=== PATIENT | female | born 1995 | race Caucasian/White ===

== ENCOUNTER → 2021-11-26 | Outpatient (CLI) | payer OTHER ==
[~2021-11-26] MED LIST: CEPH500 PO; Flagyl500 MG PO; MICO100S VAG; Macrobid 100 M100 MG PO; Naprosyn500 MG PO; PROC10 PO
[2021-11-27 10:29] LABS: Candida species (DNA Probe) Negative (NEGATIVE); G. vaginalis (DNA Probe) Positive (NEGATIVE); T. vaginalis (DNA Probe) Negative (NEGATIVE)
== END | disposition home or self-care (01) ==
LOC: LAB SHORT 17:50
PROVIDERS: Family Medicine
DX: R21 Rash and other nonspecific skin eruption (principal)
CPT/HCPCS: 87480; 87510; 87660

== ENCOUNTER → 2021-12-15 | Outpatient (CLI) | payer OTHER | LOC: LAB SHORT 11:15 → LAB 11:15 | DX: R31.9 Hematuria, unspecified (principal); R30.9 Painful micturition, unspecified | CPT/HCPCS: 87077; 87086; 87186 ==

== ENCOUNTER 2022-11-18 10:44 | Emergency (ER) | payer OTHER ==
[~2022-11-18] VITALS: Ht 160 cm; Wt 63.5 kg
[2022-11-18] MEDS ORDERED: cholecalciferol (vit (12:03)
[2022-11-18] MEDS ORDERED: LAMOTRIGINE25 M4 PO (12:03)
[2022-11-18 12:04] LABS: Source, Urine Clean Catch
[2022-11-18 12:05] VITALS: BP 111/80
[2022-11-18 12:10] LABS: Appearance, Urine Clear (Clear); Bilirubin, Urine Neg (Neg); Blood, Urine Neg (Neg); Color, Urine Yellow (P-Yellow); Glucose Qualitative, Urine Neg (Neg); Ketones, Urine Neg (Neg); Leukocyte Esterase, Urine Neg (Neg); Nitrite, Urine Neg (Neg); Protein, Urine Neg (Neg); Urobilinogen, Urine NORM (Normal)
== END 2022-11-18 12:42 | disposition home or self-care (01) ==
LOC: ER 10:44
PROVIDERS: Anesthesiology
DX: O99.891 Other specified diseases and conditions complicating pregnancy (principal); M54.50 Low back pain, unspecified; Z3A.01 Less than 8 weeks gestation of pregnancy
CPT/HCPCS: 76801; 81003

== ENCOUNTER → 2022-11-25 | Outpatient (CLI) | payer OTHER ==
[~2022-11-25] MED LIST changes: +LAMOTRIGINE25 M4 PO; +cholecalciferol (vit
[2022-11-25 16:32] LABS: Source, Urine Clean Catch
[2022-11-25 16:55] LABS: BASOPHILS ABSOLUTE AUTO 0.06 K/mm3 (0.00-0.23); BASOPHILS PERCENT AUTO 1 % (0-2); EOSINOPHILS ABSOLUTE AUTO 0.08 K/mm3 (0.00-0.68); EOSINOPHILS PERCENT AUTO 1 % (0-6); Hematocrit 42.8 % (33.0-51.0); Hemoglobin 14.9 g/dL (11.5-16.0); IMMATURE GRAN ABSOLUTE AUTO 0.02 K/mm3 (0.00-0.10); IMMATURE GRAN PERCENT AUTO 0 % (0-1); LYMPHOCYTES ABSOLUTE AUTO 2.16 K/mm3 (0.84-5.20); LYMPHOCYTES PERCENT AUTO 21 % (21-46); MONOCYTES ABSOLUTE AUTO 0.64 K/mm3 (0.16-1.47); MONOCYTES PERCENT AUTO 6 % (4-13); Mean Corpuscular HGB 31.2 pg (26.0-34.0); Mean Corpuscular HGB Conc 34.8 g/dL (31.5-36.5); Mean Corpuscular Volume 90 fL (80-100); Mean Platelet Volume 10.9 fL (9.1-12.4); NEUTROPHILS ABSOLUTE AUTO 7.29 K/mm3 (1.96-9.15); NEUTROPHILS PERCENT AUTO 71 % (41-73); Platelet Count 247 K/mm3 (150-400); RDW Coefficient Variation 11.5 % (11.7-14.2); RDW Standard Deviation 37.9 fL (35.1-46.3); Red Blood Cell Count 4.77 M/mm3 (3.80-5.20); White Blood Cell Count 10.25 K/mm3 (4.00-11.30)
[2022-11-25 17:34] LABS: Appearance, Urine Hazy (Clear); Bilirubin, Urine Neg (Neg); Blood, Urine Neg (Neg); Color, Urine Yellow (P-Yellow); Glucose Qualitative, Urine Neg (Neg); Ketones, Urine Neg (Neg); Leukocyte Esterase, Urine Neg (Neg); Nitrite, Urine Neg (Neg); Protein, Urine Neg (Neg); Urobilinogen, Urine NORM (Normal)
[2022-11-25 17:59] LABS: Amorphous Light (0-Heavy); Bacteria Rare /hpf; Mucus Light (0-Heavy); Red Blood Cells, Urine 0-2 /hpf (0-2); Squamous Epithelial Cells Mod /hpf (Few); White Blood Cells, Urine 0-2 /hpf (0-5)
[2022-11-27 04:07] LABS: HBSAG SCREEN Negative (Negative)
[2022-11-28 00:08] LABS: HIV AB/P24 AG SCREEN Non Reactive (Non Reactive)
== END | disposition home or self-care (01) ==
LOC: LAB 15:33 → LAB SHORT 15:33
PROVIDERS: Registered Nurse Community Health
DX: Z34.91 Encounter for supervision of normal pregnancy, unspecified, first trimester (principal)
CPT/HCPCS: 80055; 81001; 84443; 87077; 87086; 87186; 87389

== ENCOUNTER 2023-01-07 13:43 | Emergency (ER) | payer OTHER ==
[~2023-01-07] VITALS: Ht 160 cm; Wt 64.9 kg
[2023-01-07 13:49] VITALS: BP 111/76
[2023-01-07 15:05] LABS: Source, Urine Clean Catch
[2023-01-07 15:10] LABS: Appearance, Urine Clear (Clear); Bilirubin, Urine Neg (Neg); Blood, Urine 1+ (Neg); Color, Urine Yellow (P-Yellow); Glucose Qualitative, Urine Neg (Neg); Ketones, Urine 3+ (Neg); Leukocyte Esterase, Urine Neg (Neg); Nitrite, Urine Neg (Neg); Protein, Urine Neg (Neg); Urobilinogen, Urine NORM (Normal)
[2023-01-07 15:23] LABS: Bacteria Few /hpf; Squamous Epithelial Cells Few /hpf (Few); White Blood Cells, Urine 0-2 /hpf (0-5)
== END 2023-01-07 16:03 | disposition home or self-care (01) ==
LOC: ER 13:43
PROVIDERS: Physician Assistant
DX: O20.9 Hemorrhage in early pregnancy, unspecified (principal); O99.332 Smoking (tobacco) complicating pregnancy, second trimester; Z3A.14 14 weeks gestation of pregnancy; Z79.899 Other long term (current) drug therapy
CPT/HCPCS: 76801; 76817; 81001; 84702; 86900; 86901; 99283-25

== ENCOUNTER → 2023-01-26 | Outpatient (CLI) | payer OTHER | LOC: LAB SHORT 11:52 → LAB 11:52 | DX: R30.0 Dysuria (principal) | CPT/HCPCS: 87086 ==

== ENCOUNTER → 2023-06-01 | Outpatient (CLI) | payer OTHER | END | disposition home or self-care (01) | LOC: LAB SHORT 14:22 → LAB 14:22 | DX: N89.8 Other specified noninflammatory disorders of vagina (principal) | CPT/HCPCS: 87070; 87205 ==

== ENCOUNTER → 2023-06-12 | Outpatient (CLI) | payer OTHER | LOC: LAB SHORT 11:27 → LAB 11:27 | DX: Z34.03 Encounter for supervision of normal first pregnancy, third trimester (principal) | CPT/HCPCS: 87081; 87150 ==

== ENCOUNTER 2023-07-11 19:11 | Inpatient (IN) | payer OTHER ==
[~2023-07-11] VITALS: Ht 160 cm; Wt 80.9 kg
[2023-07-11] MEDS ORDERED: FentaNYL 2mcg/ml-Bup 0.1% Epd 250 ML EPI PRN (19:35)
[2023-07-11] MEDS ORDERED: Lidocaine HCl 1% 30 ML SDV XX SCH (19:35)
[2023-07-11] MEDS ORDERED: Oxytocin 10 Unit / ML Vial IM SCH (19:35)
[2023-07-11] MEDS ORDERED: ePHEDrine Sulfate 50 MG/ML 1ML Injection XX PRN (19:35)
[2023-07-11] MEDS ORDERED: Bupivacaine HCl 2.5 MG/ML 10ML P/F Injection XX SCH (19:35)
[2023-07-11] MEDS ORDERED: Lactated Ringer's 1,000 ML IV PRN (19:35)
[2023-07-11] MEDS ORDERED: Methylergonovine Maleate 0.2MG / ML 1ML Amp IM SCH (19:35)
[2023-07-11] MEDS ORDERED: Bupivacaine 0.5% HCl 5 MG/ML 30MLVIAL XX SCH (19:35)
[2023-07-11] MEDS ORDERED: LR Oxytocin 20 Units 1,000 ML IV SCH (19:35)
[2023-07-11] MEDS ORDERED: Misoprostol 200 MCG Tab PR SCH (19:35)
[2023-07-11] MEDS ORDERED: Castor Oil 59.146 ML BTL TOP SCH (19:35)
[2023-07-11] MEDS ORDERED: Lactated Ringer's 1,000 ML IV SCH (19:40)
[2023-07-11] MEDS ORDERED: Misoprostol 25 MCG Tab VAG PRN (19:40)
[2023-07-11] MEDS ORDERED: Ondansetron HCl 2 MG / ML 2ML Vial IV PRN (20:00)
[2023-07-11] MEDS ORDERED: Calcium Carbonate 500 MG Tab Chew PO PRN (20:00)
[2023-07-11] MEDS ORDERED: FentaNYL Citrate 50 MCG/ML 2 ML Injection IV PRN (20:00)
[2023-07-11 20:35] VITALS: BP 116/68
[2023-07-11] MEDS ORDERED: PRENATAL TABLE1 EAC2 PO (20:57)
[2023-07-11 21:19] LABS: Hematocrit 36.5 % (33.0-51.0); Hemoglobin 12.5 g/dL (11.5-16.0); Mean Corpuscular HGB 31.9 pg (26.0-34.0); Mean Corpuscular HGB Conc 34.2 g/dL (31.5-36.5); Mean Corpuscular Volume 93 fL (80-100); Mean Platelet Volume 11.1 fL (9.1-12.4); Platelet Count 278 K/mm3 (150-400); RDW Coefficient Variation 13.4 % (11.7-14.2); RDW Standard Deviation 45.2 fL (35.1-46.3); Red Blood Cell Count 3.92 M/mm3 (3.80-5.20); White Blood Cell Count 17.43 K/mm3 (4.00-11.30)
[2023-07-11 21:41] LABS: BASOPHILS PERCENT MAN 0 % (0-2); EOSINOPHILS ABSOLUTE MAN 0.17 K/mm3 (0.00-0.68); EOSINOPHILS PERCENT MAN 1 % (0-6); LYMPHOCYTES ABSOLUTE MAN 3.48 K/mm3 (0.84-5.20); LYMPHOCYTES PERCENT MAN 20 % (21-46); MONOCYTES ABSOLUTE MAN 0.69 K/mm3 (0.16-1.47); MONOCYTES PERCENT MAN 4 % (4-13); NEUTROPHILS ABSOLUTE MAN 13.07 K/mm3 (1.96-9.15); SEG NEUTROPHILS PERCENT MAN 75 % (41-73); TOTAL CELLS COUNTED 100
[2023-07-11 23:08] VITALS: BP 111/59
[2023-07-11] MEDS ORDERED: GuaiFENesin 600 MG TabCR PO PRN (23:20)
[2023-07-12] VITALS (26 sets, daily range): BP systolic 101–148; BP diastolic 55–84
[2023-07-12] MEDS ORDERED: Atarax10 MG PO (03:22)
[2023-07-12] MEDS ORDERED: Nicotine 21 MG PATCH TOP ONE (11:55)
[2023-07-12] MEDS ORDERED: Lactated Ringer's 1,000 ML IV SCH (13:55)
[2023-07-13] VITALS (16 sets, daily range): BP systolic 115–146; BP diastolic 58–86
[2023-07-13] MEDS ORDERED: FLU VACC QS2023-24(6MOS UP)/PF 60 MCG/0.5 ML SYRINGE IM SCH (05:20)
[2023-07-13] MEDS ORDERED: Witch Hazel/Glycerin PADS TOP PRN (05:20)
[2023-07-13] MEDS ORDERED: Ibuprofen 400 MG Tab PO PRN (05:20)
[2023-07-13] MEDS ORDERED: Oxytocin 10 Unit / ML Vial IM ONE (05:20)
[2023-07-13] MEDS ORDERED: LR Oxytocin 20 Units 1,000 ML IV SCH (05:20)
[2023-07-13] MEDS ORDERED: OxyCODONE 5 mg/Acetamin 325 mg TABLET PO PRN (05:25)
[2023-07-13] MEDS ORDERED: Lanolin Cream TOP PRN (05:25)
[2023-07-13] MEDS ORDERED: Methylergonovine Maleate 0.2MG / ML 1ML Amp IM PRN (05:25)
[2023-07-13] MEDS ORDERED: Lactated Ringer's 1,000 ML IV SCH (05:25)
[2023-07-13] MEDS ORDERED: Docusate Sodium 100 MG Cap PO PRN (05:25)
[2023-07-13] MEDS ORDERED: Benzocaine Topical Anesthetic Spray 60GM TOP PRN (05:25)
[2023-07-13] MEDS ORDERED: Misoprostol 200 MCG Tab PR PRN (05:25)
[2023-07-13] MEDS ORDERED: Ketorolac Tromethamine 30mg Vial IV PRN (06:00)
[2023-07-13] MEDS ORDERED: Ketorolac Tromethamine 30mg Vial IV ONE (06:00)
[2023-07-13] MEDS ORDERED: Prenatal Vit/FE Fumarate/FA 1 Tab PO SCH (09:00)
[2023-07-14 04:42] VITALS: BP 119/67
[2023-07-14 07:34] VITALS: BP 116/68
[2023-07-14 08:02] LABS: BASOPHILS PERCENT AUTO 0 % (0-2); EOSINOPHILS ABSOLUTE AUTO 0.13 K/mm3 (0.00-0.68); EOSINOPHILS PERCENT AUTO 1 % (0-6); Hematocrit 31.9 % (33.0-51.0); Hemoglobin 10.6 g/dL (11.5-16.0); IMMATURE GRAN PERCENT AUTO 1 % (0-1); LYMPHOCYTES ABSOLUTE AUTO 2.75 K/mm3 (0.84-5.20); LYMPHOCYTES PERCENT AUTO 12 % (21-46); MONOCYTES ABSOLUTE AUTO 1.04 K/mm3 (0.16-1.47); MONOCYTES PERCENT AUTO 5 % (4-13); Mean Corpuscular HGB 31.8 pg (26.0-34.0); Mean Corpuscular HGB Conc 33.2 g/dL (31.5-36.5); Mean Corpuscular Volume 96 fL (80-100); Mean Platelet Volume 10.5 fL (9.1-12.4); NEUTROPHILS ABSOLUTE AUTO 18.87 K/mm3 (1.96-9.15); NEUTROPHILS PERCENT AUTO 82 % (41-73); Platelet Count 250 K/mm3 (150-400); RDW Coefficient Variation 13.3 % (11.7-14.2); RDW Standard Deviation 46.2 fL (35.1-46.3); Red Blood Cell Count 3.33 M/mm3 (3.80-5.20); White Blood Cell Count 23.09 K/mm3 (4.00-11.30)
[2023-07-14] MEDS ORDERED: IBUP800 PO (10:05)
[2023-07-14] MEDS ORDERED: ACET500 PO (10:05)
[2023-07-14 11:08] VITALS: BP 121/59
--- NOTE | 2023-07-14 12:20 | NUR ---
PATIENT DISCHARGE TEACHING REVIEWED AT BEDSIDE. PATIENT VERBALIZED UNDERSTANDING, DENIED ANY FURTHER QUESTIONS OR CONCERNS AT THIS TIME. DC VITALS STABLE. PATIENT WALKED OUT WITH AND GRANDMOTHER AT HER SIDE.
== END 2023-07-14 11:20 | disposition home or self-care (01) | DRG 807 ==
LOC: OBS 19:11 → BC 19:13 → OBS 19:22 → BC 19:23
PROVIDERS: Family Medicine; ADMIT Registered Nurse Community Health
PROC: 10E0XZZ Delivery of Products of Conception, External Approach (ICD-10-PCS; principal; 2023-07-13)
PROC: 10907ZC Drainage of Amniotic Fluid, Therapeutic from Products of Conception, Via Natural or Artificial Opening (ICD-10-PCS; 2023-07-13)
PROC: 3E0R3BZ Introduction of Anesthetic Agent into Spinal Canal, Percutaneous Approach (ICD-10-PCS; 2023-07-13)
PROC: 00HU33Z Insertion of Infusion Device into Spinal Canal, Percutaneous Approach (ICD-10-PCS; 2023-07-13)
DX: O99.334 Smoking (tobacco) complicating childbirth (principal); Z37.0 Single live birth; Z3A.39 39 weeks gestation of pregnancy; F17.210 Nicotine dependence, cigarettes, uncomplicated
CPT/HCPCS: 36415; 51702; 85025; 86850; 86900; 86901; A9270; J1885; J2405; J2590; J7120

== ENCOUNTER → 2023-10-26 | Outpatient (CLI) | payer OTHER | END | disposition home or self-care (01) | LOC: LAB 13:03 → LAB SHORT 13:03 | DX: R10.30 Lower abdominal pain, unspecified (principal) ==